=== PATIENT | female | born 1975 | race Caucasian/White ===

== ENCOUNTER 2021-03-27 22:34 | Emergency (ER) | payer OTHER ==
[~2021-03-27 22:34] MED LIST: BENTYL 20MG TAB20 MG PO; CARAFATE1 GM PO; K-DUR TAB 10 M10 MEQ PO; K-DUR TAB 20 M20 MEQ PO; OMEPRAZOLE40 MG PO; PEPCID40 MG PO; PHENERGAN 12.12.5 MG PR; PHENERGAN 25 MG25 M1 PO; PHENERGAN 25 MG25 MG PR; REGLAN10 MG PO; ZOFRAN4 MG PO
[2021-03-28 02:00] LABS: HEMOGLOBIN 14.1 gm/dl (12.3-15.3); RED BLOOD COUNT 4.81 M/UL (4.00-5.10); WHITE BLOOD COUNT 10.8 K/UL (4.5-11.0)
[2021-03-28 02:53] LABS: BUN/CREATININE RATIO 34 (0-10)
[2021-03-28] MEDS ORDERED: PHENERGAN 25 MG25 M1 PO (06:17)
[2021-03-28] MEDS ORDERED: BENTYL 10MG CAP10 MG PO (06:17)
== END 2021-03-28 07:50 | disposition home or self-care (01) ==
LOC: ER1 22:34
PROVIDERS: Family Medicine
DX: R10.9 Unspecified abdominal pain (principal); R11.2 Nausea with vomiting, unspecified; Z90.49 Acquired absence of other specified parts of digestive tract; F17.200 Nicotine dependence, unspecified, uncomplicated
CPT/HCPCS: 80053; 81001; 83690; 84703; 85025; 96374; 96375; 96376; 99284; J1885; J2270; J2405; J2550; J7030; Q9967